=== PATIENT | male | born 1990 | race Caucasian/White ===

== ENCOUNTER 2021-11-10 03:10 | Emergency (ER) | payer OTHER ==
[~2021-11-10] VITALS: Ht 170.2 cm; Wt 81.6 kg
[2021-11-10 03:20] VITALS: BP 134/90
--- NOTE | 2021-11-10 03:20 | NUR ---
to bed ambulatory
--- NOTE | 2021-11-10 03:34 | NUR ---
PER PATIENT INJECTED TRIMIX APPROXIMATELY @2300
[2021-11-10] MEDS: PROPOFOL 200 MG/20 ML VIAL IV ONE (03:45)
[2021-11-10] MEDS: KETAMINE 500 MG/5 ML VIAL IVP ONE (03:45)
[2021-11-10 04:13] LABS: BASOPHILS # (AUTO) 0.1 K/uL (0.00-0.22); BASOPHILS % (AUTO) 0.7 % (0.0-2.0); EOSINOPHILS # (AUTO) 0.1 K/uL (0-0.4); EOSINOPHILS % (AUTO) 1.2 % (0.0-4.0); HEMATOCRIT 43.8 % (36-52); HEMOGLOBIN 14.9 g/dL (12.0-18.0); LYMPHOCYTES # (AUTO) 2.5 K/uL (2.0-11.5); LYMPHOCYTES % (AUTO) 29.2 % (20.5-51.1); MEAN CORPUSCULAR HEMOGLOBIN 28 pg (27-31); MEAN CORPUSCULAR HGB CONC 34 g/dL (33-37); MEAN CORPUSCULAR VOLUME 81.8 fL (80-94); MONOCYTES # (AUTO) 0.8 K/uL (0.8-1.0); MONOCYTES % (AUTO) 8.8 % (1.7-9.3); NEUTROPHILS # (AUTO) 5.2 K/uL (1.8-7.7); NEUTROPHILS % (AUTO) 60.1 % (42.2-75.2); PLATELET COUNT (AUTO) 182 K/uL (140-450); RED BLOOD CELL COUNT(AUTO) 5.35 MIL/uL (4.20-6.10); RED CELL DISTRIBUTION WIDTH 13.6 % (11.6-13.7); WHITE BLOOD COUNT (AUTO) 8.7 K/uL (4.8-10.8)
[2021-11-10 04:29] LABS: ALBUMIN 4.2 g/dL (3.4-5.0); ANION GAP 12.6 (8-16); CARBON DIOXIDE 28.4 mmol/L (21-32); TOTAL BILIRUBIN 0.3 mg/dL (0.0-1.0)
[2021-11-10] MEDS ORDERED: PHENYLEPHRINE 10 MG/ML VIAL ONE (04:58)
[2021-11-10 05:07] LABS: PROTHROMBIN TIME 10.2 secs (10.8-13.4)
--- NOTE | 2021-11-10 05:36 | NUR ---
Dr. Khan examining patient.
--- NOTE | 2021-11-10 05:42 | NUR ---
RT AT BEDSIDE WITH ED MD FOR PENILE DECOMPRESSION PROCEDURE
[2021-11-10] MEDS ORDERED: PROPOFOL 200 MG/20 ML VIAL IV ONE (06:08)
--- NOTE | 2021-11-10 06:27 | NUR ---
TIME OUT PERFORMED AT 0542 AND PROCEDURE INITIATED BY ROLANDO RETANA. INITIAL VITALS STABLE 0546- 50MG PROP/50MG KETAMINE 0552- 25MG PROP/25MG KETAMINE 0554- 25MG PROP 0555-PHENYLEPHRINE BILATERAL BASE OF PENIS 500MCG 0606- 30MG PROP 0613- 50MG PROP 0616- PHENYLEPHRINE TO BILATERAL MID PENIS 500MCG PROCEDURE END AT 0625
--- NOTE | 2021-11-10 06:37 | NUR ---
WARM COMPRESS TO PENILE AREA PLACED
--- NOTE | 2021-11-10 06:42 | NUR ---
APPROX 50ML BLOOD REMOVED BY ROLANDO RETANA
--- NOTE | 2021-11-10 06:43 | NUR ---
PATIENT ALERT AND ORIENTED TO BASELINE, STILL SLIGHTLY DROWSY FROM MEDICATION. VSS
--- NOTE | 2021-11-10 06:47 | NUR ---
X2 PROPOFOL BOTTLES USED DURING SEDATION
--- NOTE | 2021-11-10 07:12 | NUR ---
REPORT AND CONTINUATION OF CARE RECEIVED FROM HALIE CRAFT.
--- NOTE | 2021-11-10 07:20 | NUR ---
RECEIVED PATIENT IN SEMI-FOWLERS SYMPTOMS FEEL BETTER, PATIENT STATES FEELS "LOOPY".
--- NOTE | 2021-11-10 09:31 | NUR ---
Dr. Calvillo is reevaluating pt at bedside
[2021-11-10 09:48] VITALS: BP 132/88
--- NOTE | 2021-11-10 09:50 | NUR ---
Patient discharged with v/s stable. Written and verbal after care instructions given and explained. Patient alert, oriented and verbalized understanding of instructions. Ambulatory with steady gait. All questions addressed prior to discharge. ID band removed. Patient advised to follow up with PMD.Patient educated on indication of medication including possible reaction and side effects. Opportunity to ask questions provided and answered.
== END 2021-11-10 09:48 | disposition home or self-care (01) ==
LOC: MED 03:10
DX: N48.30 Priapism, unspecified (principal)
CPT/HCPCS: 36415; 54220; 80053; 85025; 85610; 86900; 86901; 99152; 99285; J2370; J2704